=== PATIENT | female | born 1940 | race Caucasian/White ===

== ENCOUNTER 2025-05-20 22:07 | Observation (INO) | payer MEDICARE, SELFPAY ==
[2025-05-20] VITALS (8 sets, daily range): BP systolic 119–166; BP diastolic 84–95; BMI 18.2
--- NOTE | 2025-05-20 16:49 | ED.GENMED ---
History of Present Illness
General
Chief Complaint: Cardiac Symptoms
Source: patient
Time Seen by Provider: 05/20/25 16:33
History of Present Illness
History of Present Illness:
84-year-old female presents to the emergency room complaining of an episode of chest pain. Patient is visiting family for the . While she was sitting on the couch she developed a discomfort in her central chest which was
associated with diaphoresis. Family states she looked very pale. Episode last about 20 minutes. No chest pain now. She denies any previous episodes such as this. Patient has not seen a physician in many years. She does smoke but has been
trying to cut back. She denies alcohol or drug use. Patient denies having chest pain with exertion in the recent past.
Phy Exam
Physical Exam
Physical Exam:
General: Awake, Alert, Oriented X3. No acute distress.
Vitals: unremarkable
Head: Atraumatic
Eyes: Pupils equal, EOMI
Throat: Airway intact, no exudates
Neck: Trachea midline
Lungs: Clear and equal b/l
Heart: Regular rate, no murmurs
Abd: Soft, Nontender, No pulsatile mass
Neuro: Nonfocal
Skin: Warm, dry, no rash
Extremities: pulses equal b/l, no edema
Course
Orders/Labs/Results
Orders:
Orders
05/20/25 16:37
Electrocardiogram (*1) Urgent
Reason for Study: Chest Pain
CR Chest - 2 Views Urgent
Comment:
Reason For Exam: chest pain
05/20/25 16:38
EKG- Treatment ONCE
05/20/25 16:41
Complete Blood Count/With Diff Urgent
Comprehensive Metabolic Panel Urgent
Troponin I Urgent
05/20/25 19:57
Troponin I Urgent
05/20/25 20:01
EKG [Electrocardiogram (*1)] Urgent
Reason for Study: Other
Other Reason for Exam: with repeat troponin
EKG- Treatment ONCE
05/20/25 21:15
Aspirin Chewable [Low Strength Aspirin] 324 mg PO NOW STA
05/20/25 21:38
Admit/Transfer Patient As Directed
Co-Sign Provider:
Level of Care: Observation services
Assign to:: Telemetry
Physician / Group: helio
Diagnosis: chest pain
Reason for Telemetry: Arrhythmia
Date to Stop Telemetry: 05/23/25
Time to Stop Telemetry: 11:00
Code Status As Directed
Resuscitation Status: Full Code
PRN Pain Medication Management As Directed
May give lesser potent ordered pain med per pt: Yes
preference::
Protocol:: Medication orders for pain may be administered in a
manner that supports deferring to patient preference
when the pt is:
- Requesting an ordered lesser potent pain medication.
Least to most potent pain medications are defined
as: acetaminophen < NSAID < tramadol < opioids
(morphine, oxycodone, hydromorphone).
- Requesting a lesser dose of the same medication IF
ORDERED.
- Requesting a less intrusive route of administration
if both routes are prescribed by the provider (PO <
IV).
05/23/25 11:00
DC Protocol for Telemetry ONCE
Abnormal Lab Results
05/20/25
16:41
MCV 99.1 H fL
(81.0-99.0)
MCH 33.9 H pg
(27.0-31.0)
Absolute Neuts (auto) 7.3 H 10^3/uL
(1.4-6.5)
Absolute Monos (auto) 0.7 H 10^3/uL
(0.1-0.6)
Lymphocytes % 18.2 L %
(20.5-51.1)
Sodium 133 L mmol/L
(135-145)
AST 59 H U/L
(14-36)
ALT 44 H U/L
(0-35)
Total Protein 6.1 L g/dl
(6.3-8.2)
05/20/25 16:41
05/20/25 16:41
Vital Signs
Initial and Last Documented VS:
Initial Vital Signs
Temp
97.7 F
05/20/25 16:34
Last Documented Vital Signs
Temp Pulse Resp BP Pulse Ox
98.0 F 78 16 148/84 99
05/20/25 16:40 05/20/25 23:00 05/20/25 23:00 05/20/25 23:00 05/20/25 16:52
MDM/Problems Addressed
Differential Diagnosis Includes:
NSTEMI, angina, GERD, esophageal spasm
MDM/Problems Addressed:
Patient presents after having an episode of chest discomfort which last about 20 minutes and resolved on its own. Patient has never experienced a discomfort like this before. She had a sense of doom or foreboding while having the discomfort. Her
family who is with her noted she became profoundly diaphoretic and pale. The daughter stated it did not look like she was going to make it. Fortunately the patient's troponin is negative x 2. EKG shows no ischemic changes. If the patient had
established medical care and we could arrange short-term follow-up discharge might be reasonable. However the patient has not seen a physician in decades. She has never met a clinical cytopathologist. I think it is highly unlikely that she could receive
adequate follow-up with discharge. Therefore we will hospitalize the patient for trending of troponins, cardiology evaluation. My suspicion for true coronary artery disease is quite high given the fact she smokes and likely has untreated
hypertension
*Radiology
Radiology exam reviewed: preliminary read by ED provider (No acute abnormality my review the patient chest. Changes consistent with COPD)
*Pulse Oximetry
SaO2: 99
Oxygen Mode of Delivery: Room air
Patient hypoxic: no
*EKG
Interpreted by ED Provider?: Yes
Heart Rate: 80
Rate: normal
Rhythm: sinus
[place]: normal axis
Interval: normal interval
QRS Pattern: normal QRS
Ischemia: no ischemia
*Baker Operator Automatic Interpretation
Rate: normal
Interpretation: normal
Rhythm: sinus
*Critical Care Note
Total Time (30-74mins, 75-104mins- exclusive of procedures): Not Applicable
Patient Management
Social determinants of health affecting care: Living situation ([place]) and Poor outpatient follow-up
ED Attending Note
-
Portions of this chart may have been created with voice recognition software.� Occasional wrong word or��sound alike� substitutions may have occurred due to the inherent limitations of voice recognition software.
Discharge Plan
Departure
Patient Disposition: Admit
Date of Disposition: 05/20/25
Time of Disposition: 21:21
Presentation/result/management discussed w/ accepting MD/DO: Hospitalist
Condition: Fair
Discharge Problem:
Chest pain
Interventions
Interventions:
*Risk Screen - Suicide Last Done: 05/20/25 19:44
*General Assessment Last Done: 05/20/25 16:34
*Neglect/Abuse Screening Last Done: 05/20/25 19:44
*ED- Fall Risk Assessment Last Done: 05/20/25 16:39
*ED COVID-19 Vaccine History Last Done: 05/20/25 19:44
*ED Influenza Vaccine History Last Done: 05/20/25 19:44
*Nursing Disposition Last Done: 05/20/25 23:23
ED- Pulmonary Assessment Last Done: 05/20/25 20:04
ED- Cardiac Assessment Last Done: 05/20/25 20:04
Discharge Date and Time
Discharge Date/Time: 05/20/25 23:23
[2025-05-20 16:50] LABS: Hematocrit 42.9 % (37.0-47.0); Hemoglobin 14.7 g/dL (12.0-16.0); Mean Corp Hgb Conc. 34.3 g/dL (33.0-37.0); Mean Corpuscular Volume 99.1 fL (81.0-99.0); Nucleated Red Blood Cells % 0 %; Platelet Count 167 10^3/uL (130-400); Red Cell Dist. Width 12.8 % (11.5-14.5)
[2025-05-20 17:14] LABS: ALT (SGPT) 44 U/L (0-35); AST (SGOT) 59 U/L (14-36); Albumin 4.1 g/dl (3.5-5.0); Alkaline Phosphatase 80 U/L (38-126); Blood Urea Nitrogen 17 mg/dl (7-17); Calcium 8.9 mg/dl (8.4-10.2); Carbon Dioxide 28 mmol/L (22-30); Chloride 100 mmol/L (98-107); Glucose 97 mg/dl (70-99); Potassium 3.9 mmol/L (3.5-5.1); Sodium 133 mmol/L (135-145); Total Protein 6.1 g/dl (6.3-8.2); eGFR > 60.00
[2025-05-20 17:25] LABS: Troponin I 0.015 ng/ml
[2025-05-20 20:39] LABS: Troponin I 0.017 ng/ml
[2025-05-20] MEDS: LOW STRENGTH ASPIRIN 324 MG PO (21:19)
--- NOTE | 2025-05-20 21:51 | HPS.HSE ---
Family Physician
-
Family Physician: NOT KNOW UNKNOWN - PT DOES
Chief Complaint
-
chest pain
History of Present Illness
84-year-old female without past medical history presenting with chest pain. Patient is visiting her family for the . While she was sitting on the couch she developed discomfort in her central chest associate with diaphoresis.
No radiation. Family stated that she looked very pale. Episode lasted 20 minutes. No chest pain currently. Denies any prior episode of chest pain. She has not seen a physician in many years. She does smoke few cigarettes occasionally. She
denies alcohol or drug use.
Her mother had heart disease.
Medical History
Past Medical History
Past Medical History: Reports None
Past Surgical History: Reports None
Social History
Tobacco: Smoker
Alcohol: None
Drug: None
Family History
Family History: Not pertinent
Allergies / Home Medications
Allergies reflects when Allergies were last updated in [facility].
Home Medications with original date entered in [facility]
Allergy/Medication List:
Allergies
Allergy/AdvReac Type Severity Reaction Status Date / Time
No Known Allergies Allergy Unverified 05/20/25 16:34
Home Medications
No Meds [No Current Medications] 05/20/25
Review of Systems
-
History Source: Patient
A 12 point ROS was completed and negative except as noted: Yes
Constitutional: Reports No Symptoms
EENT: Reports No Symptoms
Respiratory: Reports No Symptoms
Cardiac: Reports See HPI
Abdomen/GI: Reports No Symptoms
: Reports No Symptoms
Musculoskeletal: Reports No Symptoms
Skin: Reports No Symptoms
Neurological: Reports No Symptoms
Endocrine: Reports No Symptoms
Hematologic/Lymphatic: Reports No Symptoms
Psych: Reports No Symptoms
Physical Exam
Vital Signs
Vital Signs
Temp Pulse Resp BP Pulse Ox
98.0 F 91 23 132/95 99
05/20/25 16:40 05/20/25 21:00 05/20/25 21:00 05/20/25 21:00 05/20/25 16:52
Physical Exam
General: Well Developed, Well Nourished and No Apparent Distress
HEENT: NormoCephalic, Moist mucous membranes and Atraumatic
Respiratory: Clear
Cardiac: S1/S2 and Regular Rhythm; No Murmur or Rub
GI: Soft, Non Tender, Non Distended and Normal Bowel Sounds; No Organomegaly
Rectal: Deferred by Provider
Musculoskeletal: No Clubbing, No Cyanosis and No Edema
Skin: No Rash
Neuro: Nonfocal/grossly intact
Laboratory Results
-
05/20/25 16:41
05/20/25 16:41
Laboratory Results
Total Bilirubin 0.7 mg/dl (0.2-1.3) 05/20/25 16:41
AST 59 U/L (14-36) H 05/20/25 16:41
ALT 44 U/L (0-35) H 05/20/25 16:41
Alkaline Phosphatase 80 U/L (38-126) 05/20/25 16:41
Troponin I 0.017 ng/ml 05/20/25 19:57
Data Reviewed
-
Lab Data: Labs Reviewed by me
Old Records: Reviewed
Impression/Plan
-
IMPRESSION:
PLAN:
# Chest pain now resolved possible ACS
- EKG shows normal sinus rhythm, T wave inversions in V1, V2
- Troponin 0.015, increased to 0.017
- Chest x-ray shows hazy density over the lateral aspect of the right lower hemithorax possibly from pleural invagination from prior old rib fractures, lungs appear hyperinflated suggestive of COPD/emphysema
- Aspirin given
- Cardiology consulted
# Mild transaminitis
- Continue to monitor
Occasional smoker
Likely undiagnosed COPD as per chest x-ray
Full code
DVT prophylaxis heparin
Regular diet
--- NOTE | 2025-05-20 23:30 | PTCARENOTE ---
Pt arrived to unit from ED via stretcher. Ambulated to bed with standby assist of 1. A&Ox3. Oriented to unit. Bed in lowest position with call light in reach. Plan of care ongoing.
[2025-05-21 00:38] LABS: Troponin I 0.018 ng/ml
[2025-05-21 00:54] VITALS: BP 143/85; BMI 17.8
[2025-05-21 03:20] VITALS: BP 159/78
[2025-05-21 05:38] LABS: Hematocrit 40.4 % (37.0-47.0); Hemoglobin 14.2 g/dL (12.0-16.0); Mean Corp Hgb Conc. 35.1 g/dL (33.0-37.0); Mean Corpuscular Volume 97.3 fL (81.0-99.0); Nucleated Red Blood Cells % 0 %; Platelet Count 166 10^3/uL (130-400); Red Cell Dist. Width 12.4 % (11.5-14.5)
[2025-05-21 06:05] LABS: Troponin I 0.019 ng/ml
[2025-05-21 06:22] LABS: ALT (SGPT) 38 U/L (0-35); AST (SGOT) 33 U/L (14-36); Albumin 3.7 g/dl (3.5-5.0); Alkaline Phosphatase 75 U/L (38-126); Blood Urea Nitrogen 14 mg/dl (7-17); Calcium 9.0 mg/dl (8.4-10.2); Carbon Dioxide 27 mmol/L (22-30); Chloride 108 mmol/L (98-107); Estimated Creatinine Clearance 47 ml/min; Glucose 62 mg/dl (70-99); Potassium 4.1 mmol/L (3.5-5.1); Sodium 136 mmol/L (135-145); Total Protein 5.7 g/dl (6.3-8.2); eGFR > 60.00
[2025-05-21 07:35] VITALS: BP 142/76
[2025-05-21] MEDS: ASPIR LOW (ENTERIC COATED) 81 MG PO (08:14)
[2025-05-21] MEDS: HEPARIN 5000 UNITS SC (08:14)
--- NOTE | 2025-05-21 08:22 | W.PN.HOSP.TC ---
Today's Communication/Plan
-
- check blood glucose
- discharge likely today
Assessment / Plan
Assessment / Plan
In summary, 84 yo F who is current smoker for many years p/w chest pain.
Chest pain
- ddx is broad but not a clear ACS (does not sound anginal), aortic pathology likely would have disclosed by now); BP in 120s-160s/80s
- other ddx: GERD, pancreatitis, pulmonary bleb, etc
- per HPI, she reports that she was diaphoretic, and BG was 62 this am. raises the possibility of hypoglycemia yesterday?
- EKG shows normal sinus rhythm, T wave inversions in V1, V2
- Troponin 0.015 -> 0.017 -> 0.018 -> 0.019, trend to peak
- Chest x-ray shows hazy density over the lateral aspect of the right lower hemithorax possibly from pleural invagination from prior old rib fractures, lungs appear hyperinflated suggestive of COPD/emphysema
- Aspirin 324mg given
- lipid panel: LDL 46; total cholesterol 114; HDL 58
- Cardiology consulted: 'Would recommend outpatient cardiology follow-up - she prefers to return to [place] and follow-up with a physician locally. Discussed with her that a nuclear stress test would be a reasonable next step for further risk
stratification. Stable for discharge from my perspective. Recommend: aspirin 81 mg daily, rosuvastatin 20 mg and Toprol-XL 25 mg daily.'
- HbA1c 5.2, TSH 3.43
- check a BG later this afternoon, and if normal, will plan for discharge.
Transaminitis
- improving now, ALT 38
- likely reactive
Likely undiagnosed COPD / emphysema
- 0.5 ppd since she was a kid
- CXR shows hyperinflated lungs suggestive of COPD/emphysema
Code: full
DVTppx: subq heparin
Diet: regular
Anticipated Discharge: Within 24 hours
Subjective/Interval History
-
Date of Service: May 21, 2025
84 yo F p/w chest pain. It is substernal that began when she was at rest, nonradiating, lasted 20 min duration, with no clear trigger and spontaneously resolved. No clear aggravating or alleviating factors. She describes it as sharp character,
denies pressure or burning. The chest pain has not recurred since she presented to hospital. She denies dyspnea, headaches, or abdominal pain.
It is not related to PO intake, denies burning character. She took 325mg aspirin and arrived to ED via ambulance. She is from [place] and visiting family for the holiday.
In the ED, VSS: HR 78, BP 148/84
Labs: Hgb 14.7
Cr 0.6
Troponin 0.015 -> 0.017 -> 0.018 -> 0.019
EKG NSR
CXR
IMPRESSION:
Hazy increased density over the lateral aspect of the right lower hemithorax on the frontal view, possibly from pleural invagination from old rib fractures.
No convincing evidence for consolidation/pneumonia.
No evidence for pulmonary edema pattern
She is an active smoker, 0.5ppd since she was a kid. No EtOH, no rec drugs.
She reports no known PMHl; takes no medications outpatient, and NKDA
no acute events overnight, continues to deny chest pain
Objective Data
-
Labs:
Laboratory Results
05/21/25
05:17
WBC 10.0
Hgb 14.2
Hct 40.4
Plt Count 166
Sodium 136
Potassium 4.1
Chloride 108 H
Carbon Dioxide 27
BUN 14
Creatinine 0.5 L
Glucose 62 L
Calcium 9.0
Total Bilirubin 0.9
AST 33
ALT 38 H
Alkaline Phosphatase 75
Troponin 0.015 -> 0.017 -> 0.018 -> 0.019
Lipid panel:
triglycerides 54
Total cholesterol 114
LDL 46
VLDL 10
HDL 58
CXR
IMPRESSION:
Hazy increased density over the lateral aspect of the right lower hemithorax on the frontal view, possibly from pleural invagination from old rib fractures.
No convincing evidence for consolidation/pneumonia.
No evidence for pulmonary edema pattern
Echocardiogram 05/21/2025
SUMMARY
1. Left ventricular ejection fraction is normal with an ejection fraction of 76 % by Ledesma's biplane method of discs.
2. Right ventricular size and systolic function are within normal limits.
3. Mild to moderate tricuspid regurgitation. Estimated pulmonary artery pressure of 45 mmHg assuming a right atrial pressure of 3 mmHg.
Vital Signs:
Vital Signs
Temp Pulse Resp BP Pulse Ox
98.7 F 80 16 142/76 92
05/21/25 07:35 05/21/25 07:35 05/21/25 07:35 05/21/25 07:35 05/21/25 07:35
telemetry NSR
Review of Systems
-
History Source: Patient
Constitutional: Reports No Symptoms
EENT: Reports No Symptoms Reported
Respiratory: Reports No Symptoms
Cardiac: Reports Chest Pain
Abdomen/GI: Reports No Symptoms
Genitourinary: Reports No Symptoms
Musculoskeletal: Reports No Symptoms
Neuro: Reports No Symptoms
Physical Exam
-
General: Conversant
HEENT: Normocephalic
Respiratory: Clear to Auscultation
Cardiac: Other (no murmurs on my exam)
GI: Soft, Nontender and Nondistended
Musculoskeletal: No Edema and Other (no tenderness to palpation of sternal area)
Skin: Warm
Neuro: AO x 3, No Motor Deficits and Nonfocal/Grossly Intact
Psych: Calm
--- NOTE | 2025-05-21 08:23 | CON.CAR ---
Addendum entered and electronically signed by Marshall Chappell MD 05/21/25 09:52:
I saw and examined the patient.
The Process Line Operator's note was reviewed and I agree with the note.
Comment: Briefly, 84-year-old woman who is a current smoker presents for evaluation of substernal chest discomfort which came on at rest while sitting on the couch yesterday. Tells me she resides in [place] with her daughter and is visiting family
for [place].
Currently asymptomatic, chest discomfort has not recurred
Troponin has been within normal limits x 4
ECG is not acutely ischemic appearing
Echocardiogram performed this a.m. with normal LV function and no segmental wall motion abnormalities
Would recommend outpatient cardiology follow-up - she prefers to return to [place] and follow-up with a physician locally
Discussed with her that a nuclear stress test would be a reasonable next step for further risk stratification
Stable for discharge from my perspective
Recommend: aspirin 81 mg daily, rosuvastatin 20 mg and Toprol-XL 25 mg daily
Original Note:
Consultation
Consultation Request
Date/Time Consultation Requested: 05/20/2025
Date/Time Consultation Performed: 05/21/2025
Requesting Provider: Dr. Steinberg
Performing Provider: Halle Burns PA-C for Dr. Chappell
Reason for Consultation: CP
Medical History
-
History of Present Illness:
HPI: Marge is an 84 year old female with no significant PMH who presented to [facility] for evaluation of chest pain. She lives in [place], but is visiting family for [email or web address]. She was sitting on the couch after eating some shrimp when she noted central
chest pain. Pain did not radiate and she noted no shortness of breath, palpitations, or dizziness associated with chest pains. She never had symptoms like this before. Discomfort lasted for approximately 20 minutes before spontaneously resolving.
Given chest pain, she came to ER for evaluation. In ER, she was noted to have troponin within normal range, but detectable at 0.015. EKG SR with no acute ischemic changes noted. She was admitted for observation and cardiology consulted. She notes
she has had no recurrent symptoms and feels well this AM. Troponin has slowly trended upwards to 0.019. She has no known cardiac history, but admits she has not been followed by doctors recently.
PMH:
tobacco abuse
Past Medical History
Past Medical History: Other (In HPI)
Social History
Tobacco: Smoker
Alcohol: None
Drug: None
Living: With Family
Family History
Family History: Reviewed & Not Pertinent
Allergies / Home Medications
Allergy/AdvReac Type Severity Reaction Status Date / Time
No Known Allergies Allergy Unverified 05/20/25 16:34
�Medication �Instructions �Recorded �Confirmed �Type
No Meds [No Current Medications] 05/20/25 05/20/25 History
Review of Systems
-
History Source: Patient
All other systems: Negative unless noted
Physical Exam
Vital Signs
Temp Pulse Resp BP Pulse Ox
98.7 F 80 16 142/76 92
05/21/25 07:35 05/21/25 07:35 05/21/25 07:35 05/21/25 07:35 05/21/25 07:35
Lab Results
05/21/25 05:17
05/21/25 05:17
Troponin I 0.019 ng/ml 05/21/25 05:17
Physical Exam
General: Well Developed, Well Nourished and No Apparent Distress
HEENT: Normocephalic, Anicteric and Moist Mucous Membranes
Respiratory: Non Labored Respirations
Cardiac: S1/S2 and Regular Rhythm
Musculoskeletal: No Clubbing, No Cyanosis and No Edema
Skin: Warm and Dry
Neuro: AO x 3 and Nonfocal/Grossly Intact
Psych: Calm
Impression / Plan
-
PCP: None
Technology Instructor: None
Impression:
Presented with chest pain
Tobacco abuse
Echo 05/21/2025: Study pending
Plan:
-Presented with 20 minutes of chest pain while sitting on the couch.
-Troponin within normal range but detectable, up to 0.019. Continue to trend to peak.
-EKG SR with no acute ischemic changes noted.
-Chest xray with no evidence of heart failure/pneumonia.
-Remains chest pain free. No current complaints.
-Check echo.
-TSH within normal limits.
-Continue aspirin 81mg daily for now.
-Pending echo results, would consider OP stress test.
-LDL 46.
-Hgb A1c pending.
-Patient is from [place], and will be returning once she is discharged. Recommended she establish medical care in [place].
HPI: Marge is an 84 year old female with no significant PMH who presented to [facility] for evaluation of chest pain. She lives in [place], but is visiting family for [place]. She was sitting on the couch after eating some shrimp when she noted central
chest pain. Pain did not radiate and she noted no shortness of breath, palpitations, or dizziness associated with chest pains. She never had symptoms like this before. Discomfort lasted for approximately 20 minutes before spontaneously resolving.
Given chest pain, she came to ER for evaluation. In ER, she was noted to have troponin within normal range, but detectable at 0.015. EKG SR with no acute ischemic changes noted. She was admitted for observation and cardiology consulted. She notes
she has had no recurrent symptoms and feels well this AM. Troponin has slowly trended upwards to 0.019. She has no known cardiac history, but admits she has not been followed by doctors recently.
Data Reviewed
-
EKG: Tracing Personally Visualized and interpreted
Radiology: Report Reviewed by me
Labs: Labs Reviewed by me
[2025-05-21 08:31] LABS: HDL Cholesterol 58 mg/dl; LDL Cholesterol, Calculated 46 mg/dl; Very Low Density Lipoprotein 10 mg/dl (0-30)
[2025-05-21 09:03] LABS: TSH 3.43 uIU/ml (0.47-4.68)
[2025-05-21 09:29] LABS: Glucose - Point of Care 72 mg/dl (70-99)
[2025-05-21 10:39] LABS: Glycohemoglobin (HgbA1c) 5.2 % (4.0-5.9)
[2025-05-21 10:57] VITALS: BP 124/68
[2025-05-21] MEDS: TOPROL XL 25 MG PO (11:07)
[2025-05-21 12:18] LABS: Troponin I 0.014 ng/ml
[2025-05-21 12:32] LABS: Glucose - Point of Care 152 mg/dl (70-99)
[2025-05-21 14:18] LABS: Glucose - Point of Care 146 mg/dl (70-99)
--- NOTE | 2025-05-21 14:35 | W.DCSUMMARY ---
Documented by User: Stefano Marques MD, Resident 05/21/25 15:25
Discharge Summary
Discharge Data
Date of Admission: 05/20/25
Date of Discharge: 05/21/25
-
Pending Results: No
Hospital Course
Discharging Physician : Dr. Alvaro Steinberg, Dr. Stefano Marques
Disposition : Home
Principal Discharge diagnosis : Chest pain, CXR findings suggestive of emphysema
Hospital Course :
84 yo F p/w chest pain. It is substernal that began when she was at rest, nonradiating, lasted 20 min duration, with no clear trigger and spontaneously resolved. No clear aggravating or alleviating factors. She describes it as sharp character,
denies pressure or burning. The chest pain has not recurred since she presented to hospital. She denies dyspnea, headaches, or abdominal pain. It is not related to PO intake. Denies burning character. She reports feeling some diaphoresis.
She took 325mg aspirin and arrived to ED at [facility] via ambulance. She is from [place] and visiting family for the holiday.
She is an active smoker, '0.5ppd since she was a kid.' No EtOH, no rec drugs.
EKG shows normal sinus rhythm, T wave inversions in V1, V2
Troponin 0.015 -> 0.017 -> 0.018 -> 0.019 -> 0.014
CXR suggested emphysematous changes
HbA1c 5.2
Lipid panel: LDL 46; total cholesterol 114; HDL 58
TSH 3.43
Labs during this admission were largely unremarkable except for a blood glucose on 05/21 AM.
The following problems were addressed during this admission
Chest pain
- ddx is broad but not a clear ACS (does not sound anginal), aortic pathology likely would have disclosed by now, other etiologies to consider: GERD, pancreatitis, pulmonary bleb, etc
- EKG and troponin trend are reassuring
- Cardiology was consulted: 'Would recommend outpatient cardiology follow-up - she prefers to return to [place] and follow-up with a physician locally. Discussed with her that a nuclear stress test would be a reasonable next step for further risk
stratification. Stable for discharge from my perspective. Recommend: aspirin 81 mg daily, rosuvastatin 20 mg and Toprol-XL 25 mg daily.'
- Plan for discharge on the three medications per cardiology's recommendations with close follow-up with her PCP from [place].
- Patient has been counselled to follow-up with her PCP because she is starting three new medications, per cardiology's recommendation; the family and the patient express good understanding.
Hypoglycemia
- per HPI, she reports that she was diaphoretic, and BG was 62 this am which raises the possibility of hypoglycemia
- However, after PO intake, serial blood glucose of 152 and 146 together suggest that she is not at risk of hypoglycemia.
Transaminitis
- improving
- likely reactive
Likely undiagnosed COPD / emphysema
- 0.5 ppd cigarettes since she was a kid
- CXR shows hyperinflated lungs suggestive of COPD/emphysema
Important imaging findings :
Echocardiogram 05/21/2025
SUMMARY
1. Left ventricular ejection fraction is normal with an ejection fraction of 76 % by Ledesma's biplane method of discs.
2. Right ventricular size and systolic function are within normal limits.
3. Mild to moderate tricuspid regurgitation. Estimated pulmonary artery pressure of 45 mmHg assuming a right atrial pressure of 3 mmHg.
CXR 05/20/2025
IMPRESSION:
Hazy increased density over the lateral aspect of the right lower hemithorax on the frontal view, possibly from pleural invagination from old rib fractures.
No convincing evidence for consolidation/pneumonia.
No evidence for pulmonary edema pattern.
Upper lungs appear hyperinflated, suggestive of COPD/emphysema. Please correlate clinically.
Discharge Plan
-
Patient Disposition: Home (Routine Discharge)
Discharge Diagnosis/Procedures: Chest pain, emphysema on CXR
Condition: Fair
Diet: No restrictions
Activity: As tolerated
Driving Restrictions: As prior to admission
Referrals:
Ann Marie Padilla DO [Active, Pulmonary Medicine]
Referral Note: If you wish to follow-up with pulmonary at [place]
Marshall Chappell MD [Active, Cardiology]
Referral Note: If you wish to follow-up with cardiology at [facility]
Additional Discharge Medication Instructions: You should follow-up with your primary care physician within 1-2 weeks.
The weapons and tactics instructor here recommends that you start aspirin 81mg daily, rosuvastatin 20mg daily, and Toprol-XL 25mg daily. The prescriptions have been printed for you.
You should talk to your primary care doctor about (1) pulmonary function testing, (2) abdominal ultrasound for aortic aneurysm screening and (3) low-dose CT chest for lung cancer screening given your smoking history.
You should establish care with a weapons and tactics instructor and ask about nuclear cardiac stress testing.
Should you wish to establish care at [facility], a weapons and tactics instructor and hiv/aids care nurse are suggested above.
Prescriptions:
New
aspirin 81 mg Tablet,Delayed Release (Dr/Ec)
81 mg PO DAILY Qty: 30 0RF
metoprolol succinate 25 mg Tablet Extended Release 24 Hr
25 mg PO DAILY Qty: 30 0RF
rosuvastatin 20 mg Tablet
20 mg PO QPM Qty: 30 0RF
Discharge Orders:
Discharge Patient (As Directed); Ordered 05/21/25
Ordered By: Stefano Marques
Discharge Date and Time
Print Language: FIJIAN

Documented by User: Alvaro Steinberg DO 05/21/25 15:51
Discharge Summary
Discharge Data
Date of Admission: 05/20/25
Date of Discharge: 05/21/25
Total time spent discharging patient (in min): 32
Discharge Plan
-
Patient Disposition: Home (Routine Discharge)
Discharge Diagnosis/Procedures: Chest pain, emphysema on CXR
Condition: Fair
Diet: No restrictions
Activity: As tolerated
Driving Restrictions: As prior to admission
Referrals:
Ann Marie Padilla DO [Active, Pulmonary Medicine]
Referral Note: If you wish to follow-up with pulmonary at [facility]
Marshall Chappell MD [Active, Cardiology]
Referral Note: If you wish to follow-up with cardiology at [facility]
Additional Discharge Medication Instructions: You should follow-up with your primary care physician within 1-2 weeks.
The weapons and tactics instructor here recommends that you start aspirin 81mg daily, rosuvastatin 20mg daily, and Toprol-XL 25mg daily. The prescriptions have been printed for you.
You should talk to your primary care doctor about (1) pulmonary function testing, (2) abdominal ultrasound for aortic aneurysm screening and (3) low-dose CT chest for lung cancer screening given your smoking history.
You should establish care with a weapons and tactics instructor and ask about nuclear cardiac stress testing.
Should you wish to establish care at [facility], a weapons and tactics instructor and hiv/aids care nurse are suggested above.
Prescriptions:
New
aspirin 81 mg Tablet,Delayed Release (Dr/Ec)
81 mg PO DAILY Qty: 30 0RF
metoprolol succinate 25 mg Tablet Extended Release 24 Hr
25 mg PO DAILY Qty: 30 0RF
rosuvastatin 20 mg Tablet
20 mg PO QPM Qty: 30 0RF
Discharge Orders:
Discharge Patient (As Directed); Ordered 05/21/25
Ordered By: Stefano Marques
Discharge Date and Time
Print Language: FIJIAN
[2025-05-21 15:09] VITALS: BP 130/76
--- NOTE | 2025-05-21 15:39 | CM ---
CM met with Marge and her daughters at bedside. Martino notice signed and in pt's chart, copy provided to patient's daughter who signed the notice due to pt's macular degeneration.
Pt is (I) amb and adl's, daughter to drive home.
Plan: Discharge to home with no identified needs.
== END 2025-05-21 16:03 | disposition home or self-care (01) ==
LOC: 3 WEST ACU 22:07
PROVIDERS: ADMITTING PHYSICIAN Hospitalist; ATTENDING PHYSICIAN Internal Medicine; EMERGENCY PHYSICIAN Emergency Medicine; OTHER PHYSICIAN Internal Medicine Cardiovascular Disease
DX: J98.4 Other disorders of lung (principal); R07.89 Other chest pain; E16.2 Hypoglycemia, unspecified; R61 Generalized hyperhidrosis; F17.210 Nicotine dependence, cigarettes, uncomplicated; I49.9 Cardiac arrhythmia, unspecified; I70.0 Atherosclerosis of aorta; I08.1 Rheumatic disorders of both mitral and tricuspid valves; R74.01 Elevation of levels of liver transaminase levels; Z82.49 Family history of ischemic heart disease and other diseases of the circulatory system; Z79.82 Long term (current) use of aspirin
CPT/HCPCS: 71046; 80053; 80061; 82962; 83036; 84443; 84484; 85025; 93005; 93306; 99285; 99406; G0378